=== PATIENT | male | born 1960 | race Caucasian/White ===

== ENCOUNTER 2017-10-17 06:08 | Day surgery (SDC) | payer OTHER ==
[2017-10-17] VITALS (22 sets, daily range): BP systolic 90–127; BP diastolic 50–70; PULSE 46–72; RESP 13–21; Ht 154.9 cm; Wt 47.0 kg
[~2017-10-17] VITALS: Ht 154.9 cm; Wt 47.0 kg
[~2017-10-17 06:08] MED LIST: SOD CHLORIDE 0.9% 1,000 ML IV SCH
[2017-10-17] MEDS ORDERED: SIMV-39 PO (06:53)
[2017-10-17] MEDS ORDERED: ASCO500C7 PO (06:53)
[2017-10-17] MEDS ORDERED: VIT B COMPLEX PO (06:53)
[2017-10-17 07:04] LABS: BASOPHILS % 0.8 % (0.0-2.0); EOSINOPHILS # 0.1 10^3/ul (0.0-0.5); EOSINOPHILS % 1.7 % (0.0-7.0); HEMATOCRIT 45.3 % (42.0-52.0); HEMOGLOBIN 15.7 g/dl (14.0-18.0); LYMPHOCYTES % 40.9 % (15.0-51.0); MEAN CORPUSCULAR HEMOGLOBIN 32.7 pg (29.0-33.0); MEAN CORPUSCULAR HGB CONC 34.7 g/dl (32.0-37.0); MEAN CORPUSCULAR VOLUME 94.4 fl (82.0-101.0); MEAN PLATELET VOLUME 10.7 fl (7.4-10.4); MONOCYTE # 0.5 10^3/ul (0.3-0.9); MONOCYTES % 10.3 % (0.0-11.0); NEUTROPHIL # 2.2 10^3/ul (1.6-7.5); NEUTROPHILS % 46.3 % (39.0-77.0); PLATELET COUNT 218 10^3/UL (140-415); RED CELL DISTRIBUTION WIDTH 11.7 % (11.5-14.5); WHITE BLOOD COUNT 4.8 10^3/ul (4.8-10.8)
[2017-10-17] MEDS ORDERED: IODIXANOL LOCM 100 ML BTL ONE (07:10)
[2017-10-17] MEDS ORDERED: HEPARIN 1000 UNITS/ML 10 ML INJ ONE (07:10)
[2017-10-17] MEDS ORDERED: MIDAZOLAM 1 MG/ML 2 ML INJ ONE (07:10)
[2017-10-17] MEDS ORDERED: LIDOCAINE 1% (MDV) 20 ML INJ ONE (07:10)
[2017-10-17] MEDS ORDERED: VERAPAMIL 5 MG INJ ONE (07:11)
[2017-10-17] MEDS ORDERED: FENTAnyl 50 MCG/ML VIAL ONE (07:11)
[2017-10-17] MEDS ORDERED: NITROGLYCERIN (IC) 100 MCG/ML INJ ONE (07:11)
[2017-10-17 07:25] LABS: INR 0.89; PROTIME 12.1 Sec (11.9-14.9); PT RATIO 0.9
[2017-10-17 07:34] LABS: CALCIUM 9.6 mg/dl (8.4-10.2); CREATININE 0.82 mg/dl (0.61-1.24); POTASSIUM 4.1 mmol/L (3.5-5.1)
[2017-10-17] MEDS ORDERED: SOD CHLORIDE 0.9% 1,000 ML IV SCH (07:46)
--- NOTE | 2017-10-17 07:50 | OPR ---
Date/Time of Note Date/Time of Note DATE: 10/17/17 TIME: 07:47 Operative Report Procedure Date: Oct 17, 2017 Preoperative Diagnosis Cardiomyopathy EF 30% Premature ventricular contractions. Postoperative Diagnosis Non-ischemic Cardiomyopathy EF 30% No significant CAD Operation/Procedure Performed Left Heart Catheterization Surgeon see signature line Biostatistics Manager none Anesthesia Type: moderate sedation Estimated Blood Loss: minimal Transfusion none Specimen none Grafts/Implants none Complications none Disposition: PACU Procedure Description DESCRIPTION OF PROCEDURE: The patient placed on wheelabrator operator, pulse oximetry and supplemental oxygen as necessary. The right wrist was prepped and draped in a sterile fashion and infiltrated with 1% lidocaine. Via the Seldinger technique, the right femoral artery was accessed. A 5 Portuguese sheath was inserted and through this the right coronary catheter and left coronary catheter and pigtail were advanced into the right coronary artery and left coronary artery and the left ventricle. Placement confirmed by fluoroscopy and hemodynamics. CATHETERIZATION FINDINGS: 1. Left main: No significant disease. 2. LAD: Large caliber vessel with no significant disease. 3. Circumflex: Dominant Medium caliber vessel with no significant disease. 4. Obtuse marginal: Medium caliber vessel with no significant disease. 5. RCA: non-dominant vessel with no significant disease HEMODYNAMICS: LVEDP 6. No significant aortic valve gradient on pigtail pullback. TOTAL CONTRAST: 15cc FLUOROSCOPY TIME: 1.5 minutes. COMPLICATIONS: None. FINAL RESULTS: Non-ischemic cardiomyopathy EF 30%. RECOMMENDATIONS: Medical Management Discharge home CARROLL COHEN Oct 17, 2017 07:50
[2017-10-17] MEDS ORDERED: ACETAMINOPHEN 325 MG TAB PO ONE (13:00)
--- NOTE | 2017-10-17 20:32 | RADRPT ---
Vent Rate: 95 bpm RR Interval: 0 msec NE Interval: 162 msec QRS Duration: 90 msec QT Interval: 392 msec QTC Interval: 492 msec P-R-T [place]: 77 - 23 - 64 degrees Sinus rhythm with frequent , and consecutive premature ventricular complexes Prolonged QT Abnormal ECG Electronically Signed By: Alfredo Rosales [id number]
== END 2017-10-17 12:45 | disposition home or self-care (01) ==
LOC: SDS 06:08
PROVIDERS: ATTEND Internal Medicine
DX: I42.9 Cardiomyopathy, unspecified (principal); R94.31 Abnormal electrocardiogram [ECG] [EKG]; E78.2 Mixed hyperlipidemia
CPT/HCPCS: 80048; 85025; 85610; 93005; 93458; C1887; J1644; J2250; J3010; Q9967